=== PATIENT | female | born 1930 | race Caucasian/White ===

== ENCOUNTER 2017-02-21 11:19 | Emergency (ER) | payer MEDICARE ==
[~2017-02-21] VITALS: Ht 157.5 cm; Wt 70.5 kg
[~2017-02-21 11:19] MED LIST: ATEN25TA PO; CHOL100043 PO; LEVO750T9 PO
[2017-02-21 11:34] VITALS: BP 153/78; PULSE 56; RESP 18; O2SAT 97
--- NOTE | 2017-02-21 11:36 | ED.REPORT ---
HPI-Trauma Minor / Fall Date of Service Feb 21, 2017 ED Provider: The patient is an 86 year old female with history of dementia, previous subdural hematoma, and hypertension, who was brought to the emergency department by EMS after she had a ground level fall prior to arrival. The patient was walking her dog when she got caught up, lost her balance, and fell. She landed on her face on the sidewalk. She did not lose consciousness. She complains of mild head pain, facial pain, and right shoulder pain. She is not on any blood thinners. She denies abdominal pain, neck pain or urinary symptoms. Nursing Notes Stated Complaint: GLF Chief Complaint: Laceration Nursing Notes Reviewed: Yes Allergies: Coded Allergies: No Known Allergies (Verified Allergy, Unknown, 02/21/17) Scheduled Atenolol (Atenolol) 25 Mg Tablet 25 MG PO DAILY Cholecalciferol (Vitamin D3) (Vitamin D) 1,000 Unit Tablet 1,000 UNIT PO DAILY Levofloxacin (Levaquin) 750 Mg Tablet 750 MG PO DAILYAC General Time Seen by MD: 11:36 Chief Complaint Fall, Face injury, Head injury Hx Obtained From: Patient, EMS Arrived By: Ambulance Onset Occurred: Just prior to arrival Symptom Duration: Since onset Location: Face Head Shoulder right Quality: Painful Severity: Current: Mild Severity: Maximum: Mild Recent Healthcare: No recent doctor visit, No recent hospitalization Similar Sx Previous: No Past Medical History Past Medical History Alzheimer dementia Subdural Hematoma HTN HL Insomnia Past Surgical History Denies Family History Noncontributory Smoking History Never Smoker Social History Alcohol Use: Denies alcohol use Drug Use: Denies drug use Other Social History: , Lives in [facility], Local resident Ambulatory Status Independent Review of Systems Review of Systems Note: +facial pain Musculoskeletal: Reports: Joint pain, Denies: Neck pain Neurologic: Reports: Headache, Denies: Change LOC, Syncope Complete sys rev & neg: except as marked. GI: Denies: Abdominal pain Female: Denies: Dysuria, Urinary frequency, Urinary urgency, Urination decreased, Urination increased Physical Exam Initial Vital Signs Vital Signs (First) Date Time Temp Pulse Resp B/P Pulse Ox O2 Delivery O2 Flow Rate FiO2 02/21/17 11:34 36.9 56 18 153/78 97 Room Air Initial VS: Reviewed Respiratory: Breath sounds normal, Clear to auscultation, No respiratory distress Cardiovascular: Regular rate & rhythm, Heart sounds normal, Intact distal pulses Abdomen / GI: Soft, Non-tender, No guarding, No rebound, No distention Lymphatic: No lymphadenopathy Extremities: Vascular intact, Neuro intact, No swelling, No tenderness Skin: Warm, Dry, No cyanosis Psychiatric: Mood/affect normal, Behavior normal, Normal thought content General/Constitutional: Awake, Alert, Cooperative Neck: Supple, Full range of motion, Non-tender, No midline vertebral tend Head / Eyes: Atraumatic, Normocephalic, PERRL, EOMI ENT: Airway patent, Mucous membranes moist Nasal bridge and bilateral maxillary tenderness. Facial abrasions, no suturing required. Neurologic: Oriented X3, Speech NL Involuntary spasm that lasted 1 second. Interpretation & Diagnostics CT FACE WITHOUT CONTRAST IMPRESSION: 1. No maxillofacial trauma. 2. Mild right frontal soft tissue swelling without underlying calvarial abnormality. Dictated by: Giselle Rosado M.D. on 02/21/2017 at 12:35 Lab Results Interpretation Result Diagram: 02/21/17 1245 02/21/17 1245 Test 02/21/17 12:45 02/21/17 13:00 White Blood Count 7.1th/mm3 (3.8-10.1) Red Blood Count 4.45mil/mm3 (3.90-5.20) Hemoglobin 13.4g/dL (12.0-15.6) Hematocrit 40.6% (35.0-46.0) Mean Corpuscular Volume 91.2fL (81-100) Mean Corpuscular Hemoglobin 30.1pg (27.0-35.0) Mean Corpuscular Hemoglobin Concent 33.0% (32.0-37.0) Red Cell Distribution Width 13.5% (12.3-15.4) Platelet Count 249bil/L (150-400) Neutrophils (%) (Auto) 56.4% (40-74) Lymphocytes (%) (Auto) 30.7% (14-46) Monocytes (%) (Auto) 8.4% (4-12) Eosinophils (%) (Auto) 3.8% (0-5) Basophils (%) (Auto) 0.4% (0-3) Sodium Level 139mEq/L (134-144) Potassium Level 4.7mEq/L (3.5-5.2) Chloride Level 102mEq/L (97-108) Carbon Dioxide Level 23mmol/L (18-29) Blood Urea Nitrogen 11mg/dL (8-27) Creatinine 0.76mg/dL (0.57-1.00) Estimat Glomerular Filtration Rate 103mL/min (>59) Glucose Level 103mg/dL (60-99) Calcium Level 9.7mg/dL (8.5-10.1) Total Bilirubin 0.3mg/dL (0.0-1.2) Aspartate Amino Transf (AST/SGOT) 19U/L (0-50) Alanine Aminotransferase (ALT/SGPT) 10U/L (0-32) Alkaline Phosphatase 71U/L (25-165) Total Protein 6.6g/dL (6.4-8.4) Albumin 4.0g/dL (3.4-5.0) Hold Freedman Top Tube Received (Received) Hold Urine Received (Received) ECG Interpretation ECG Interpretation: Sinus rhythm with a rate of 54 PAC LBBB Time: 12:51 Interpreted by: ED physician CT Head Interpretation IMPRESSION: 1. No acute intracranial findings. 2. Small right frontal subgaleal hematoma without underlying calvarial abnormality. 3. Findings likely associated with chronic microvascular ischemia. Dictated by: Giselle Rosado M.D. on 02/21/2017 at 12:31 Study: Head CT no contrast Interpretation / Wet Read by: Interpret - ED physician Re-Eval/Medical Decision Med Decision/Clinical Course Mechanical type ground level fall no obvious traumatic injury other than some abrasions of the face, basic labs were obtained as the patient seems to have this paroxysmal transient twitch that lasts less than a second, it is not consistent with a seizure or stroke or any other obvious life-threatening pathology. It seems to stopped and the patient will be discharged. Return and follow-up precautions given Source of Hx: Old records, EMS Re-Evaluation/Progress #1: Time of Eval: 14:00 Re-Evaluation/Progress Note: Rechecked the patient. Discussed results, diagnosis, and plan for discharge. Will road test prior to discharge. All questions were addressed. Re-Evaluation/Progress #2: Time of Eval: 14:11 Re-Evaluation/Progress Note: The patient passed her road test. Will discharge home. Counseled Regarding: Diagnosis, Lab results, Need for follow-up, When/why to return to ED Discharge & Departure Impression: Primary Impression: Fall from ground level Additional Impressions: Facial injury Encounter type: initial encounter Qualified Code: S09.93XA - Unspecified injury of face, initial encounter Facial abrasion Encounter type: initial encounter Qualified Code: S00.81XA - Abrasion of other part of head, initial encounter Disposition: Home Discharge Condition All VS Reviewed: Yes Condition: Stable Additional Instructions: Thank you for entrusting us with your care today. Your workup today is reassuring. Followup with your regular doctor next week for re-evaluation. Seek care for any new or concerning symptoms. Referrals: Arabella Funez MD (PCP) Scribe Attestation Portions of this note were transcribed by Key Davison. I, Dr. Trivedi personally performed the history, physical exam and medical decision-making; I reviewed and confirmed the accuracy of the information in the transcribed note. Signed by: Clau Means, 02/21/2017 at 1420. copies to: Arabella Funez MD, Timothy S DO Feb 21, 2017 11:36 Key Davison Feb 21, 2017 11:39
--- NOTE | 2017-02-21 12:36 | DRSVH ---
PROCEDURE: CT BRAIN WITHOUT CONTRAST ([id number]) INDICATIONS: fall, head and facial trauma TECHNIQUE: Noncontrast 4.5 mm thick angled axial sections acquired from the foramen magnum to the vertex, with c oronal reformats. COMPARISON: [facility], CT, BRAIN W/O CONTRAST, 02/22/2015, 15:57. FINDINGS: Image quality: Excellent. CSF spaces: Basal cisterns are patent. No extra-axial fluid collections. The ventricles are symmet farhat in size and shape. Brain: No intracranial bleeds or masses. There is cerebral volume loss for age, with resultant vent ricular and sulcal prominence. There are periventricular and deep white matter chronic small vessel ischemic changes. There is intracranial internal carotid artery atherosclerosis. Skull and face: There is a small right frontal subgaleal hematoma. Calvarium and visualized facial b ones appear intact, without suspicious lesions. Sinuses: Visualized sinuses and mastoids are clear. IMPRESSION: 1. No acute intracranial findings. 2. Small right frontal subgaleal hematoma without underlying calvarial abnormality. 3. Findings likely associated with chronic microvascular ischemia. Dictated by: Giselle Rosado M.D. on 02/21/2017 at 12:31 Approved by: Giselle Rosado M.D. on 02/21/2017 at 12:34
--- NOTE | 2017-02-21 12:38 | DRSVH ---
PROCEDURE: CT FACE WITHOUT CONTRAST ([id number]) INDICATIONS: fall, head and facial trauma TECHNIQUE: Noncontrast 1.5 mm thick axial images acquired from the mandible through the frontal sinuses, with co isaac and sagittal reformatting. For radiation dose reduction, the following was used: automated ex posure control. COMPARISON: None. FINDINGS: Image quality: Excellent. Bones and teeth: Orbital rowland are intact. Sinus rowland show no fracture or deformity. Nasal bones and septum are intact. Visualized portions of the mandible demonstrate no fractures or subluxation. Zygomatic arches are intact. Pterygoid plates are intact. Visualized portions of the skull base an d auditory canals are intact. Sinuses: Paranasal sinuses are aerated, without fluid levels or mucoceles. There is mild mucosal thi ckening at the inferior maxillary sinuses. Mastoid air cells are aerated. Soft tissues: Mild right frontal soft tissue swelling. No masses or fluid collections. No enlarged l ymph nodes. No soft tissue lacerations or debris. Vascular: Visualized vascular structures appear normal in the absence of contrast. Bony vascular fo ramina and canals are intact. IMPRESSION: 1. No maxillofacial trauma. 2. Mild right frontal soft tissue swelling without underlying calvarial abnormality. Dictated by: Giselle Rosado M.D. on 02/21/2017 at 12:35 Approved by: Giselle Rosado M.D. on 02/21/2017 at 12:37
[2017-02-21 13:03] LABS: BASOPHILS % (AUTO) 0.4 % (0-3); EOSINOPHILS % (AUTO) 3.8 % (0-5); MONOCYTES % (AUTO) 8.4 % (4-12); Mean Corpuscular Hemoglobin 30.1 pg (27.0-35.0); Mean Corpuscular Volume 91.2 fL (81-100); NEUTROPHILS % (AUTO) 56.4 % (40-74); Platelet Count 249 bil/L (150-400)
[2017-02-21 15:00] VITALS: BP 142/72; PULSE 57; RESP 20; O2SAT 98
== END 2017-02-21 15:01 | disposition home or self-care (01) ==
LOC: SED 11:19 → EDBD 11:19 → SED 15:01
DX: S09.93XA Unspecified injury of face, initial encounter (principal); S00.81XA Abrasion of other part of head, initial encounter; W19.XXXA Unspecified fall, initial encounter; Y93.K1 Activity, walking an animal; Y92.480 Sidewalk as the place of occurrence of the external cause; Y99.8 Other external cause status; I10 Essential (primary) hypertension